=== PATIENT | female | born 1995 | race Caucasian/White ===

== ENCOUNTER → 2017-03-26 | Outpatient (CLI) | payer OTHER ==
[2017-03-26 15:12] LABS: BASO % 0.3 % (0.0-1.0); EOS # 0.1 10^3/uL (0.0-0.50); EOS % 0.8 % (0.0-3.0); HEMATOCRIT 38.9 % (36.0-47.0); HEMOGLOBIN 13.1 g/dl (12.0-16.0); IMMATURE GRANULOCYTE # 0.1 10^3/uL (0-0); IMMATURE GRANULOCYTE % 0.5 % (0-0); LYMPH # 2.1 10^3/uL (1.5-6.5); LYMPH % 19.6 % (24.0-44.0); MEAN CORPUSCULAR HEMOGLOBIN 29.5 pg (27.0-33.0); MEAN CORPUSCULAR HGB CONC 33.7 g/dl (32.0-36.5); MEAN CORPUSCULAR VOLUME 87.6 fl (80.0-96.0); MONO # 0.7 10^3/uL (0.0-0.8); MONO % 6.3 % (0.0-5.0); NEUTROPHILS # 7.8 10^3/uL (1.8-7.7); NEUTROPHILS % 72.5 % (36.0-66.0); PLATELET COUNT, AUTOMATED 277 10^3/uL (150-450); RED BLOOD COUNT 4.44 10^6/uL (4.00-5.40); RED CELL DISTRIBUTION WIDTH 12.9 % (11.5-14.5); WHITE BLOOD COUNT 10.7 10^3/uL (4.0-10.0)
[2017-03-26 17:00] LABS: CHLAMYDIA DNA AMPLIFICATION NEGATIVE (NEGATIVE); GC DNA AMPLIFICATION NEGATIVE (NEGATIVE)
[2017-03-27 10:01] LABS: RUBELLA IgG QUALITATIVE IMMUNE (IMMUNE)
[2017-03-27 10:09] LABS: HBsAg Prenatal NEGATIVE (NEGATIVE)
[2017-03-27 10:30] LABS: HEPATITIS C VIRUS ABY INDEX < 0.0 INDEX (<0.8)
[2017-03-27 10:31] LABS: HIV 1&2 SCREEN CENTAUR NEGATIVE (NEGATIVE)
== END ==
LOC: M LAB 14:33
DX: Z34.81 Encounter for supervision of other normal pregnancy, first trimester (principal); Z3A.09 9 weeks gestation of pregnancy
CPT/HCPCS: 86762

== ENCOUNTER → 2017-05-19 | Outpatient (CLI) | payer OTHER | LOC: M RAD 15:23 | DX: Z34.82 Encounter for supervision of other normal pregnancy, second trimester (principal) ==

== ENCOUNTER → 2017-07-06 | Outpatient (CLI) | payer OTHER ==
[2017-07-06 14:09] LABS: HEMATOCRIT 36.7 % (36.0-47.0); MEAN CORPUSCULAR HEMOGLOBIN 30.1 pg (27.0-33.0); MEAN CORPUSCULAR HGB CONC 32.7 g/dl (32.0-36.5); PLATELET COUNT, AUTOMATED 274 10^3/uL (150-450); RED BLOOD COUNT 3.99 10^6/uL (4.00-5.40); RED CELL DISTRIBUTION WIDTH 13.1 % (11.5-14.5); WHITE BLOOD COUNT 12.1 10^3/uL (4.0-10.0)
[2017-07-06 14:25] LABS: GLUCOSE CHALLENGE TEST 1 HOUR 68 MG/DL (LESS THAN 140)
== END ==
LOC: M SMT 10:25
DX: Z34.82 Encounter for supervision of other normal pregnancy, second trimester (principal)
CPT/HCPCS: 82950

== ENCOUNTER → 2017-09-15 | Outpatient (REF) | payer OTHER | LOC: M LAB REF 13:00 | DX: Z34.83 Encounter for supervision of other normal pregnancy, third trimester (principal); Z3A.00 Weeks of gestation of pregnancy not specified ==

== ENCOUNTER 2017-10-15 21:22 | Outpatient (CLI) | payer OTHER | END 2017-10-15 23:55 | disposition home or self-care (01) | LOC: M LDO 21:22 | DX: O47.1 False labor at or after 37 completed weeks of gestation (principal); Z3A.40 40 weeks gestation of pregnancy | CPT/HCPCS: 59025 ==

== ENCOUNTER 2017-10-16 04:59 | Inpatient (IN) | payer OTHER ==
[2017-10-16] MEDS: LR 1,000 ML IV (06:04)
[2017-10-16] MEDS ORDERED: OXYTOCIN DRIP 30 UNITS in APPROPRIATE DILUENT 1 EA IV (06:15)
[2017-10-16 06:34] LABS: HEMATOCRIT 36.3 % (36.0-47.0); HEMOGLOBIN 11.6 g/dl (12.0-15.5); MEAN CORPUSCULAR HEMOGLOBIN 26.1 pg (27.0-33.0); MEAN CORPUSCULAR VOLUME 81.8 fl (80.0-96.0); PLATELET COUNT, AUTOMATED 340 10^3/uL (150-450); RED BLOOD COUNT 4.44 10^6/uL (4.00-5.40); RED CELL DISTRIBUTION WIDTH 14.1 % (11.5-14.5)
[2017-10-16] MEDS ORDERED: FENTANYL 2MCG/ML ROPIVACAINE 0.2% IN 0.9% NACL 200ML IVBAG As Ordered (08:43)
[2017-10-16] MEDS ORDERED: EPIDURAL/PCA KEYS XX (10:30)
[2017-10-16] MEDS ORDERED: REFRIGERATOR IV KEYS XX (10:30)
[2017-10-16] MEDS ORDERED: ePHEDrine SULFATE 25 MG/5 ML(5MG/ML) SYRINGE IV (10:30)
[2017-10-16] MEDS ORDERED: LACTATED RINGER'S 1000 ML IV (10:30)
[2017-10-16] MEDS ORDERED: NALOXONE INJ 0.4 MG/1 ML VIAL (J2310) IV (10:30)
[2017-10-16] MEDS ORDERED: FENTANYL/ROPIVACAINE/NACL BAG 200 ML EPIDURAL (10:30)
[2017-10-16] MEDS ORDERED: diphenhydrAMINE INJ 50MG/ML VIAL (J1200) IV (10:30)
[2017-10-16] MEDS ORDERED: ONDANSETRON 4MG/2ML VIAL (J2405) IV ×2 (10:30→21:00)
[2017-10-16] MEDS ORDERED: EPIDURAL COMMENT XX (10:30)
[2017-10-16] MEDS ORDERED: ACETAMINOPHEN 500 MG TAB As Ordered (19:32)
[2017-10-16] MEDS: ACETAMINOPHEN 500 MG TAB PO (19:37)
[2017-10-16] MEDS: AMPICILLIN SOD/SULBACTAM SOD 1.5 GM in D5W MINI-BAG PLUS 50 ML IV (19:37)
[2017-10-16] MEDS ORDERED: RHOGAM 300 MCG (1500 IU) INJ (J2790) IM (21:00)
[2017-10-16] MEDS: OXYTOCIN DRIP 30 UNITS in APPROPRIATE DILUENT 1 EA IV (21:00)
[2017-10-16] MEDS ORDERED: METHYLERGONOVINE MALEATE 0.2 MG TAB PO (21:00)
[2017-10-16] MEDS ORDERED: DOCUSATE SODIUM 100 MG CAP PO (21:00)
[2017-10-16] MEDS ORDERED: DIBUCAINE 1% OINTMENT 30GM TOP (21:00)
[2017-10-16] MEDS ORDERED: ACETAMINOPHEN 500 MG TAB PO (21:00)
[2017-10-16] MEDS ORDERED: MEASLES,MUMPS,RUBELLA VACCINE INJ (MMR-II) (90707) SC (21:00)
[2017-10-16 21:06] LABS: CORD GAS ABE V -4.6; CORD GAS HCO3 V 19.4 MEQ/L; CORD GAS O2 SAT V 50.5 %; CORD GAS PCO2 V 33.3 mmHg; CORD GAS PH V 7.383 UNITS; CORD GAS PO2 V 20.8 mmHg; CORD GAS SBC V 19.6 MEQ/L; CORD GAS TCO2 V 20.4 MEQ/L
[2017-10-16 21:08] LABS: CORD GAS HCO3 A 20.1 MEQ/L; CORD GAS O2 SAT A 95.4 %; CORD GAS PCO2 A 37.8 mmHg; CORD GAS PH A 7.343 UNITS; CORD GAS PO2 A 61.8 mmHg; CORD GAS SBC A 20.3 MEQ/L; CORD GAS TCO2 A 21.2 MEQ/L
[2017-10-16] MEDS: LIDOCAINE 1% MDV 20ML VIAL INFIL (21:15)
[2017-10-16] MEDS ORDERED: AMPICILLIN SOD/SULBACTAM SOD 3 GM in D5W MINI-BAG PLUS 100 ML IV (23:00)
[2017-10-17] MEDS: AMPICILLIN SOD/SULBACTAM SOD 3 GM in D5W MINI-BAG PLUS 100 ML IV ×2 (01:39→08:08)
[2017-10-17] MEDS: PRENATAL VITAMINS CHEWABLE TABLET PO (08:08)
[2017-10-18] MEDS: PRENATAL VITAMINS CHEWABLE TABLET PO (07:56)
[2017-10-18] MEDS: IBUPROFEN 800 MG TAB PO (22:18)
[2017-10-19] MEDS: PRENATAL VITAMINS CHEWABLE TABLET PO (08:01)
[2017-10-19] MEDS: IBUPROFEN 800 MG TAB PO (11:23)
== END 2017-10-19 13:55 | disposition home or self-care (01) | DRG 775 ==
LOC: M LDO 04:59 → M LDI 06:01 → M OBS 22:57
PROVIDERS: Advanced Practice Midwife
PROC: 10E0XZZ Delivery of Products of Conception, External Approach (ICD-10-PCS; principal; 2017-10-16)
PROC: 0KQM0ZZ Repair Perineum Muscle, Open Approach (ICD-10-PCS; 2017-10-16)
PROC: 10907ZC Drainage of Amniotic Fluid, Therapeutic from Products of Conception, Via Natural or Artificial Opening (ICD-10-PCS; 2017-10-16)
DX: O48.0 Post-term pregnancy (principal); O41.1230 Chorioamnionitis, third trimester, not applicable or unspecified; Z3A.40 40 weeks gestation of pregnancy; O70.1 Second degree perineal laceration during delivery; Z37.0 Single live birth; O76 Abnormality in fetal heart rate and rhythm complicating labor and delivery; O77.0 Labor and delivery complicated by meconium in amniotic fluid

== ENCOUNTER → 2019-08-03 | Outpatient (CLI) | payer MEDICAID ==
[~2019-08-03] MED LIST: ACET-683 PO; IBUP200C25 PO; PRENTAB55 PO
== END ==
LOC: M LABSMTC 11:20
PROVIDERS: ATTEND Family Medicine
DX: Z11.59 Encounter for screening for other viral diseases (principal)
CPT/HCPCS: C9803; U0003

== ENCOUNTER → 2020-02-28 | Outpatient (CLI) | payer MEDICAID | LOC: M LABSMTC 13:50 | PROVIDERS: ATTEND Family Medicine | DX: Z20.828 Contact with and (suspected) exposure to other viral communicable diseases (principal) ==

== ENCOUNTER → 2020-05-30 | Outpatient (REF) | payer MEDICAID ==
[2020-05-30 15:51] LABS: CHLAMYDIA DNA AMPLIFICATION POSITIVE (NEGATIVE); GC DNA AMPLIFICATION NEGATIVE (NEGATIVE)
== END ==
LOC: M SFHCWAGY 13:26
PROVIDERS: ATTEND Advanced Practice Midwife
DX: Z36.89 Encounter for other specified antenatal screening (principal); Z3A.08 8 weeks gestation of pregnancy

== ENCOUNTER → 2020-05-30 | Outpatient (REF) | payer MEDICAID ==
[2020-05-30 14:17] LABS: HEMATOCRIT 41.7 % (36.0-47.0); HEMOGLOBIN 13.4 g/dl (12.0-15.5); MEAN CORPUSCULAR HEMOGLOBIN 29.6 pg (27.0-33.0); MEAN CORPUSCULAR HGB CONC 32.1 g/dl (32.0-36.5); MEAN CORPUSCULAR VOLUME 92.1 fl (80.0-96.0); PLATELET COUNT, AUTOMATED 283 10^3/uL (150-450); RED BLOOD COUNT 4.53 10^6/uL (4.00-5.40); WHITE BLOOD COUNT 9.3 10^3/uL (4.0-10.0)
[2020-05-30 14:40] LABS: HEMOGLOBIN A1c 4.7 %
[2020-05-30 16:20] LABS: HEPATITIS C VIRUS ABY INDEX < 0.0 INDEX (<0.8); HIV 1&2 SCREEN CENTAUR NEGATIVE (NEGATIVE)
== END ==
LOC: M PLALAB 10:48
PROVIDERS: ATTEND Advanced Practice Midwife
DX: Z36.89 Encounter for other specified antenatal screening (principal); Z3A.08 8 weeks gestation of pregnancy

== ENCOUNTER → 2020-08-17 | Outpatient (CLI) | payer MEDICAID ==
--- NOTE | 2020-08-17 13:01 | REP ---
INDICATION: ANATOMY. COMPARISON: None. TECHNIQUE: Transabdominal FINDINGS: Multiple ultrasonographic images of the gravid uterus shows a single living intrauterine gestation in the cephalic presentation. Doppler interrogation of the heart shows a heart rate of 149 beats per minute. The placenta is anterior and not low-lying. The cervix measures 3.4 cm in length and is closed. BPD: 4.5 cm 19 weeks 5 days HC: 16.3 cm 19 weeks 1 day AC: 13.9 cm 19 weeks 2 day FL: 3.0 cm 19 weeks 1 day The estimated weight is 280 g which is at the 42nd percentile for a 19 week 2 day gestational age. anatomical structures seen as unremarkable are as follows: Cerebellum, cisterna magna, cerebral ventricles, four-chamber heart, ventricular outflow tracts, upper and lower extremities, spine, and three-vessel umbilical cord. Structures suboptimally visualized are as follows: Thalami, cavum septum pellucidum, kidneys, urinary bladder, facial features, and stomach IMPRESSION: Single living intrauterine gestation as described above with an estimated gestational age of 19 weeks 2 days via composite criteria and an estimated date of delivery of 01/09/2021 by today's exam. No anomalies were detected, however, I recommend a follow-up examination to better visualize those anatomical structures not well seen today as described above. <Electronically signed by Jamison Maxwell > 08/17/20 [id number]
== END ==
LOC: M WHC 11:20
PROVIDERS: ATTEND Obstetrics & Gynecology
DX: Z34.91 Encounter for supervision of normal pregnancy, unspecified, first trimester (principal); Z3A.19 19 weeks gestation of pregnancy

== ENCOUNTER → 2020-08-22 | Outpatient (REF) | payer MEDICAID | LOC: M SFHCWAGY 13:05 | PROVIDERS: ATTEND Advanced Practice Midwife | DX: Z34.82 Encounter for supervision of other normal pregnancy, second trimester (principal) ==

== ENCOUNTER → 2020-09-17 | Outpatient (CLI) | payer MEDICAID ==
--- NOTE | 2020-09-17 10:22 | REP ---
INDICATION: F/U ANATONY. COMPARISON: Comparison study August 17, 2020.. TECHNIQUE: Transabdominal obstetric sonography. FINDINGS: Scanning through the gravid uterus demonstrates a viable single intrauterine gestation in cephalic lie. motion is observed and heart rate is recorded at 146 beats per minute. A anterior placenta is seen, grade 1, without evidence of placenta previa. Closed cervical length is measured at 4.0 cm transabdominally. No extrauterine abnormality is observed. Amniotic fluid is subjectively normal. No anomaly is seen. The following anatomic structures are identified and felt to be sonographically unremarkable: cranium, choroid plexus, cavum, cerebellum and posterior fossa, face and profile, lungs, diaphragm, left-sided stomach, abdominal wall cord insertion, three-vessel umbilical cord, kidneys and bladder, spine, and upper and lower extremities. Four-chamber heart, cyst outflow tract views, and spine were less than optimally seen today but these structures were observed previously. Biometry chart: BPD 6.1 cm, 24 weeks 5 days Head circumference 22.3 cm, 24 weeks 2 days Abdominal circumference 18.2 cm, 23 weeks 0 days Femur length 4.4 cm, 24 weeks 4 days Humeral length 3.9 cm, 23 weeks 5 days HC AC ratio normal 1.23 Cephalic index normal 0.76 Estimated weight 631 g, 1 lb 6 oz, 46 percentile for 23 weeks 3 days IMPRESSION: Viable single intrauterine gestation at 24 weeks 0 days by today's composite sonographic criteria. KALLI by today's sonography January 07, 2021. No complication identified. Expected gestational age estimate from known KALLI of 09 January 2021 is 23 weeks 5 days. Appropriate interval growth. In conjunction with previous sonography, anatomic survey is felt to be complete. <Electronically signed by Nikolai Nagy > 09/17/20 [id number]
== END ==
LOC: M WHC 08:28
PROVIDERS: ATTEND Advanced Practice Midwife
DX: Z34.82 Encounter for supervision of other normal pregnancy, second trimester (principal); Z3A.24 24 weeks gestation of pregnancy

== ENCOUNTER → 2020-10-08 | Outpatient (CLI) | payer MEDICAID ==
[~2020-10-08] MED LIST changes: +IBUP80TA PO
[2020-10-08 14:16] LABS: HEMATOCRIT 37.2 % (36.0-47.0); HEMOGLOBIN 12.1 g/dl (12.0-15.5); MEAN CORPUSCULAR HEMOGLOBIN 29.5 pg (27.0-33.0); MEAN CORPUSCULAR HGB CONC 32.5 g/dl (32.0-36.5); MEAN CORPUSCULAR VOLUME 90.7 fl (80.0-96.0); PLATELET COUNT, AUTOMATED 255 10^3/uL (150-450); WHITE BLOOD COUNT 10.1 10^3/uL (4.0-10.0)
[2020-10-08 15:42] LABS: GC DNA AMPLIFICATION NEGATIVE (NEGATIVE)
== END ==
LOC: M PLALAB 11:37
PROVIDERS: ATTEND Specialist
DX: Z34.82 Encounter for supervision of other normal pregnancy, second trimester (principal)

== ENCOUNTER → 2020-12-12 | Outpatient (REF) | payer MEDICAID ==
[~2020-12-12] MED LIST changes: -IBUP80TA PO
== END ==
LOC: M SFHCWAGY 17:32
PROVIDERS: ATTEND Advanced Practice Midwife
DX: Z36.89 Encounter for other specified antenatal screening (principal); Z3A.36 36 weeks gestation of pregnancy

== ENCOUNTER 2020-12-30 12:26 | Outpatient (CLI) | payer MEDICAID ==
[~2020-12-30] VITALS: Ht 170.2 cm; Wt 112.9 kg
[2020-12-30 12:49] VITALS: BP 134/65
[2020-12-30] MEDS ORDERED: HOME MED LIST COMPLETE! XX SCH (13:25)
--- NOTE | 2020-12-30 15:30 | REP ---
INDICATION: 38 4/7 WKS LOW BASELINE - NEED BPP AND MICHAEL AND EFW. COMPARISON: None. TECHNIQUE: Transabdominal scanning FINDINGS: Multiple ultrasonographic images of the gravid uterus shows a single living intrauterine gestation in the cephalic presentation. Doppler interrogation of the heart shows a heart rate of 127 beats per minute. The placenta is anterior and not low-lying. The cervix measures 5.5 cm in length and is closed. Doppler interrogation of the umbilical artery shows an A\B ratio of 2.67. This is within the normal range. biophysical profile score is 2 for breathing, 2 for movement, 2 for tone, and 2 for amniotic fluid volume. The calculated amniotic fluid index is 10.0 cm. The expected range is 7.2-23.2. the subjective amniotic fluid volume is within normal limits. BPD: 9.7 cm 39 weeks 6 days AC: 35.0 cm 40 weeks 5 days AC: 33.9 cm 37 weeks 6 days FL: 7 cm 36 weeks 0 days The estimated weight is 3350 g which is at the 50th percentile. IMPRESSION: Single living intrauterine gestation as described above an estimated gestational age of 38 weeks 3 days via composite criteria and an estimated date of delivery of 01/10/2021 by today's exam. <Electronically signed by Jamison Maxwell > 12/30/20 [id number]
== END 2020-12-30 15:29 | disposition home or self-care (01) ==
LOC: M LDO 12:26
PROVIDERS: ATTEND Obstetrics & Gynecology
DX: O36.8130 Decreased fetal movements, third trimester, not applicable or unspecified (principal); Z3A.38 38 weeks gestation of pregnancy

== ENCOUNTER 2021-01-13 00:37 | Inpatient (IN) | payer MEDICAID ==
[~2021-01-13] VITALS: Ht 170.2 cm; Wt 114.0 kg
[2021-01-13] VITALS (15 sets, daily range): BP systolic 97–183; BP diastolic 50–133
[2021-01-13] MEDS ORDERED: LACTATED RINGER'S 1000 ML IV STA (01:23)
[2021-01-13] MEDS ORDERED: OXYTOCIN DRIP 30 UNITS in IV 1 EA IV SCH ×2 (01:25→04:35)
[2021-01-13] MEDS ORDERED: LR 1,000 ML IV SCH ×2 (01:25)
--- OUTSIDE RECORDS SUMMARY | 2021-01-13 01:29 | CCD ---
Author Author [facility] Organization [facility] [employer] [facility] Address Unknown Phone Unavailable Care Team Providers Care Lining Strap Closer Name Role Phone CaioLianet rivas Unavailable PROBLEMS Type Condition ICD9-CM Code [id number] Code Onset Dates Condition S tatus W/U Status Risk SNOMED Code Notes Problem Supervision of other normal Z34.80 Ac tive confirm [id number] Problem Obesity complicating in third trimester O99.213 Active confirmed ALLERGIES No Known Allergies ENCOUNTERS from 1993 to 2020-10-31 Encounter Location Date Provider Diagnosis [facility] [address] [place] [address] [place] [address] Sep, Lianet Caiorob Obesity complicat ing in third trimester O99.213 and 29 weeks gestation of Z3A.29 IMMUNIZATIONS No Information SOCIAL HISTORY Tobacco Use: Social History Observation Description Date Details (start date - stop date) Never Smoker Sex Assigned At : Social History Observation Description Sex Assigned At Unknown Domestic Violence: Question Answer Notes Status: No history of abuse Alcohol Screening: Question Answer Notes Did you have a drink containing alcohol in the past year? No Points 0 Interpretation Negative Tobacco Use: Question Answer Notes Are you a: never smoker REASON FOR REFERRAL No Information VITAL SIGNS Weight 241.0 lbs Sep, Weight-kg 109.32 kg Sep, Height 67 in Sep, BMI 37.746 kg/m2 Sep, Blood pressure systolic 128 mm Hg Sep, Blood pressure diastolic 84 mm Hg Sep, MEDICATIONS Medication SIG (Take, Route, Frequency, Duration) Notes Start Da te End Date Status 28-0.8 MG 1 tablet Orally Once a day Active PROCEDURES No Information RESULTS No Results REASON FOR VISIT 4 wk pn MEDICAL (GENERAL) HISTORY Type Description Date Hospitalization History Childbirth Goals Section No Information Health Concerns No Information MEDICAL EQUIPMENT No Information MENTAL STATUS No Information FUNCTIONAL STATUS No Information ASSESSMENTS Encounter Date Diagnosis Assessment Notes Treatment Notes Treatm ent Clinical Notes Sep, Obesity complicating pregnan cy in third trimester (ICD-10 - O99.213) Sep, 29 weeks gestation of (ICD-10 - Z3A.29 ) PLAN OF TREATMENT Next Appt Details 2 Weeks Reason:- Routine follow up Provider Name:Tarun Lares, 2020-11-14 08:00:00 AM, [address] [place] [address], [address] [place] [address], [place], [address], Provider Name:Chichi iDxon, 2020-11-28 11:00:00 AM, [address] [place] [address], [place], [address], Provider Name:Lianet Chavarria, 2020-12-12 11:40:00 AM, [address] [place] [address], [address] [place] [address], [place], [address], Provider Name:Chichi Dixon, 2020-12-19 11:40:00 AM, [address] [place] [address], [address] [place] [address], [place], [address], Provider Name:Solange Esquivel, 2020-12-26 1 1:00:00 AM, [address] [place] [address], [address] [place] [address], [place], [address], Provider Name:Gilmar Rothman, 11:00:00 AM, [address] [place] [address], [address] [place] [address], [place], [address], Provider Name:Tarun Laers, 2021-01-09 10:15:00 AM, [address] [place] [address], [place], [address], Follow Up:2 Weeks- Routine follow up Insurance Providers Payer Name Payer Address Payer Phone Insured Name Patient Relati onship to Insured Coverage Start Date Coverage End Date MEDICAID [employer] [address] [facility] [address] [place] self
--- OUTSIDE RECORDS SUMMARY | 2021-01-13 01:29 | CCD ---
Author Author [facility] Organization [facility] [employer] [facility] Address Unknown Phone Unavailable Care Team Providers Care Wireless Sales Manager Name Role Phone Chichi Dixon Unavailable PROBLEMS Type Condition ICD9-CM Code [id number] Code Onset Dates Condition S tatus W/U Status Risk SNOMED Code Notes Problem Obesity complicating in third trimester O99.213 Active confirmed Problem Obesity, unspecified E66.9 Active confirmed [id number] Problem Supervision of other normal Z34.80 Ac tive confirm [id number] ALLERGIES No Known Allergies ENCOUNTERS from 1993 to 2021-01-07 Encounter Location Date Provider Diagnosis [facility] [address] [place] [address] [place] [address] Nov, Chichi Dixon Encounter for superv ision of other normal in third trimester Z34.83 and 37 weeks gestation of Z3A.37 IMMUNIZATIONS Vaccine Route Administration Date Status TDAP 0.5mL Boostrix IM Intramuscular Nov 14, 2020 Administere d Influenza 6mo & up Fluzone IM Intramuscular Dec 26, 2020 Admi nistered SOCIAL HISTORY Tobacco Use: Social History Observation [...] FOR REFERRAL No Information VITAL SIGNS Weight 247.8 lbs Nov, Weight-kg 112.4 kg 20 Oct, 2021 Height 67 in Nov, BMI 38.811 kg/m2 Nov, Blood pressure systolic 120 mm Hg Nov, Blood pressure diastolic 70 mm Hg Nov, MEDICATIONS Medication SIG (Take, Route, Frequency, Duration) Notes Start Da te End Date Status 28-0.8 MG 1 tablet Orally Once a day Active PROCEDURES No Information RESULTS No Results REASON FOR VISIT 1 WK MEDICAL (GENERAL) HISTORY Type Description Date Hospitalization History Childbirth Goals Section No Information Health Concerns No Information MEDICAL EQUIPMENT No Information MENTAL STATUS No Information FUNCTIONAL STATUS No Information ASSESSMENTS Encounter Date Diagnosis Assessment Notes Treatment Notes Treatm ent Clinical Notes Nov, Encounter for supervision of other normal in third trimester (ICD-10 - Z34.83) Nov, 37 weeks gestation of (ICD-10 - Z3A.37 ) PLAN OF TREATMENT Next Appt Details 1 Week Reason:PN Provider Name:Tarun Harris Lares, 2021-01-09 10:15:00 AM, [address] [facility], , [place], [address], Follow Up:1 WeekPN Insurance Providers Payer Name Payer Address Payer Phone Insured Name Patient Relati onship to Insured Coverage Start Date Coverage End Date MEDICAID [employer] [address] [facility] [address] [place] self
--- OUTSIDE RECORDS SUMMARY | 2021-01-13 01:29 | CCD ---
Author Author [facility] [employer] [facility] Organization [facility] [employer] [facility] Address Unknown Phone Unavailable Care Team Providers Care Clinical Engineer Name Role Phone Chichi Dixon Unavailable PROBLEMS Type Condition ICD9-CM Code [id number] Code Onset Dates Condition S tatus W/U Status Risk SNOMED Code Notes Problem Obesity complicating in third trimester O99.213 Active confirmed Problem Obesity, unspecified E66.9 Active confirmed [id number] Problem Supervision of other normal Z34.80 Ac tive confirm [id number] ALLERGIES No Known Allergies ENCOUNTERS from 1993 to 2020-12-20 Encounter Location Date Provider Diagnosis [facility] [address] [place] [address] [place] [address] Nov, Chichi Dixon IMMUNIZATIONS Vaccine Route Administration Date Status TDAP 0.5mL Boostrix IM Intramuscular Nov 14, 2020 Administere d SOCIAL HISTORY Tobacco Use: Social History Observation [...] REASON FOR REFERRAL No Information VITAL SIGNS No information MEDICATIONS Medication SIG (Take, Route, Frequency, Duration) Notes Start Da te End Date Status 28-0.8 MG 1 tablet Orally Once a day Active PROCEDURES No Information RESULTS No Results REASON FOR VISIT Fell in shower MEDICAL (GENERAL) HISTORY Type Description Date Hospitalization History Childbirth Goals Section No Information Health Concerns No Information MEDICAL EQUIPMENT No Information MENTAL STATUS No Information FUNCTIONAL STATUS No Information ASSESSMENTS No Information PLAN OF TREATMENT Next Appt Details Provider Name:Kila Kiana Castro, 2 7 10:00:00 AM, [address] [place] [address], , [place], [address], Provider Name:Gilmar Rothman, 10:00:00 AM, [address] [place] [address], , [place], [address], Provider Name:Tarun Lares, 2021-01-09 10:15:00 AM, [address] [place] [address], , [place], [address], Insurance Providers Payer Name Payer Address Payer Phone Insured Name Patient Relati onship to Insured Coverage Start Date Coverage End Date MEDICAID [employer] [address] [facility] [id number] [place] self
--- OUTSIDE RECORDS SUMMARY | 2021-01-13 01:29 | CCD ---
Author Author [facility] Organization [facility] [employer] Address Unknown Phone Unavailable Care Team Providers Care It Senior Software Engineer Java Name Role Phone Solange Esquivel Unavailable PROBLEMS Type Condition ICD9-CM Code [id number] Code Onset Dates Condition S tatus W/U Status Risk SNOMED Code Notes Problem Supervision of other normal Z34.80 Ac tive confirm [id number] Problem Obesity complicating in third trimester O99.213 Active confirmed ALLERGIES No Known Allergies ENCOUNTERS from 1993 to 2020-11-27 Encounter Location Date Provider Diagnosis [facility] [address] [place] [address] [place] [address] Oct, Solange Esquivel IMMUNIZATIONS Vaccine Route Administration Date Status TDAP 0.5mL Boostrix IM Intramuscular Nov 14, 2020 Pending SOCIAL HISTORY Tobacco Use: Social History Observation [...] Information RESULTS No Results REASON FOR VISIT Continued Complaints MEDICAL (GENERAL) HISTORY Type Description Date Hospitalization History Childbirth Goals Section No Information Health Concerns No Information MEDICAL EQUIPMENT No Information MENTAL STATUS No Information FUNCTIONAL STATUS No Information ASSESSMENTS No Information PLAN OF TREATMENT Next Appt Details Provider Name:Lianet Chavarria, 2020-12-12 10:00:00 AM, [address] [place] [address], , [place], [address], Provider Name:Chichi Dixon, 2020-12-19 10:00:00 AM, [address] [place] [address], , [place], [address], Provider Name:Lianet Chavarria, 2020-12-26 10:00:00 AM, [address] [place] [address], , [place], [address], Provider Name:Gilmar Rothman, 10:00:00 AM, [address] [place] [address], , [place], [address], Provider Name:Tarun Lares, 2021-01-09 10:15:00 AM, [address] [place] [address], , [place], [address], Insurance Providers Payer Name Payer Address Payer Phone Insured Name Patient Relati onship to Insured Coverage Start Date Coverage End Date MEDICAID [employer] [address] [facility] [address] [place] self
--- OUTSIDE RECORDS SUMMARY | 2021-01-13 01:29 | CCD ---
Author Author [facility] Syst [facility] Organization [facility] [employer] [facility] Address Unknown Phone Unavailable Care Team Providers Care Public Service Director Name Role Phone ArnaudTarun Unavailable PROBLEMS Type Condition ICD9-CM Code IHV37-GO Code Onset Dates Condition S tatus W/U Status Risk SNOMED Code Notes Problem Supervision of other normal Z34.80 Ac tive confirm [id number] Problem Obesity complicating in third trimester O99.213 Active confirmed ALLERGIES No Known Allergies ENCOUNTERS from 1993 to 2020-12-11 Encounter Location Date Provider Diagnosis [facility] [address] [place] [address] [place] [address] Oct, Tarun Lares Encounter for superv ision of other normal in third trimester Z34.83 ; 32 weeks gestation of Z3A.32 and Encounter for immunization Z23 IMMUNIZATIONS Vaccine Route Administration Date Status TDAP [...] FOR REFERRAL No Information VITAL SIGNS Weight 241.8 lbs Oct, Height 67 in Oct, BMI 37.871 kg/m2 Oct, Blood pressure systolic 122 mm Hg Oct, Blood pressure diastolic 74 mm Hg Oct, MEDICATIONS Medication SIG (Take, Route, Frequency, Duration) Notes Start Da te End Date Status 28-0.8 MG 1 tablet Orally Once a day Active PROCEDURES from 1993 to 2020-12-11 Procedure Date Ordered Result Body Site Imm: Boostrix 0.5mL IM TDAP 2020-11-14 N/A RESULTS No Results REASON FOR VISIT 2 WK PN MEDICAL (GENERAL) HISTORY Type Description Date Hospitalization History Childbirth Goals Section No Information Health Concerns No Information MEDICAL EQUIPMENT No Information MENTAL STATUS No Information FUNCTIONAL STATUS No Information ASSESSMENTS Encounter Date Diagnosis Assessment Notes Treatment Notes Treatm ent Clinical Notes Oct, 32 weeks gestation of (ICD-10 - Z3A.32 ) Oct, Encounter for supervision of other normal in third trimester (ICD-10 - Z34.83) Oct, Encounter for immunization (ICD-10 - Z23) PLAN OF TREATMENT Next Appt Details Provider Name:Lianet Chavarria, 2020-12-12 10:00:00 AM, [address] [place] [address], [place], [place], [address] [place] [address], [address] [place] [address] Provider Name:Chichi Dixon, 2020-12-19 10:00:00 AM, [address] [place] [address], [place], [place], [address] [place] [address], Provider Name:Lianet Chavarria, 2020-12-26 10:00:00 AM, [address] [place] [address], [place], [address] [place] [address], Provider Name:Gilmar Rothman, 10:00:00 AM, [address] [place] [address], [place], [address], Provider Name:Tarun Lares, 2021-01-09 10:15:00 AM, [address] [place] [address], [place], [address], Insurance Providers Payer Name Payer Address Payer Phone Insured Name Patient Relati onship to Insured Coverage Start Date Coverage End Date MEDICAID [employer] [address] [facility] [id number] [place] self
--- OUTSIDE RECORDS SUMMARY | 2021-01-13 01:29 | CCD ---
Author Author [facility] [employer] [facility] [facility] Organization [facility] [employer] [facility] [facility] Address Unknown Phone Unavailable Care Team Providers Care Lathe Scalper Operator Name Role Phone CaioLianet rivas Unavailable PROBLEMS Type Condition ICD9-CM Code [id number] Code Onset Dates Condition S tatus W/U Status Risk SNOMED Code Notes Problem Obesity complicating in third trimester O99.213 Active confirmed Problem Obesity, unspecified E66.9 Active confirmed 373426143 Problem Supervision of other normal Z34.80 Ac tive confirm [id number] ALLERGIES No Known Allergies ENCOUNTERS from 1993 to 2020-12-14 Encounter Location Date Provider Diagnosis [facility] [address] [place] [address] [place] [address] Nov, Lianet Chavarria Obesity complicat ing in third trimester O99.213 ; Malpresentation of fetus, antepartum O32.9XX0 ; Obesity, unspecified E66.9 and 36 weeks gestation of Z3A.36 IMMUNIZATIONS Vaccine Route Administration Date Status TDAP [...] FOR REFERRAL No Information VITAL SIGNS Weight 245 lbs Nov, Weight-kg 111.13 kg Nov, Height 67 in Nov, BMI 38.372 kg/m2 Nov, Blood pressure systolic 120 mm Hg Nov, Blood pressure diastolic 70 mm Hg Nov, MEDICATIONS Medication SIG (Take, Route, Frequency, Duration) Notes Start Da te End Date Status 28-0.8 MG 1 tablet Orally Once a day Active PROCEDURES No Information RESULTS Component Value Reference Range GROUP B STREP CULTURE Reviewed date:12/14/2020 11:35:20 Interpretation: Performing Lab:[facility], [facility] [address] [facility] [id number] , ,[place] [address] REASON FOR VISIT 2 WK MEDICAL (GENERAL) HISTORY Type Description Date Hospitalization History Childbirth Goals Section No Information Health Concerns No Information MEDICAL EQUIPMENT No Information MENTAL STATUS No Information FUNCTIONAL STATUS No Information ASSESSMENTS Encounter Date Diagnosis Assessment Notes Treatment Notes Treatm ent Clinical Notes Nov, Obesity complicating pregnan cy in third trimester (ICD-10 - O99.213) Nov, Malpresentation of fetus, antepartum (ICD-10 - O 32.9XX0) Nov, Obesity, unspecified (ICD-10 - E66.9) Nov, 36 weeks gestation of (ICD-10 - Z3A.36 ) PLAN OF TREATMENT Next Appt Details 1 Week Reason:- Routine follow up Provider Name:Chichi Dixon, 2020-12-19 10:00:00 AM, [address] [place] [address] , [place], [address], Provider Name:Marisol Castro, 2020-12-01 7 10:00:00 AM, [address] [place] [address], [place], [address], Provider Name:Gilmar Rothman, 10:00:00 AM, [address] [place] [address], [place], [address], Provider Name:Tarun Lares, 2021-01-09 10:15:00 AM, [address] [place] [address], [place], [address], Follow Up:1 Week- Routine follow up Insurance Providers Payer Name Payer Address Payer Phone Insured Name Patient Relati onship to Insured Coverage Start Date Coverage End Date MEDICAID [employer] [address] [facility] [address] [place] self
--- OUTSIDE RECORDS SUMMARY | 2021-01-13 01:29 | CCD ---
Author Author [facility] Organization [employer] [facility] Address Unknown Phone Unavailable Care Team Providers Care Management Sme Name Role Phone Berta Waggoner Unavailable PROBLEMS Type Condition ICD9-CM Code XXQ35-IF Code Onset Dates Condition S tatus W/U Status Risk SNOMED Code Notes Problem Supervision of other normal Z34.80 Ac tive confirm [id number] Problem Obesity complicating in third trimester O99.213 Active confirmed ALLERGIES No Known Allergies ENCOUNTERS from 1993 to 2020-11-28 Encounter Location Date Provider Diagnosis [facility] [address] [place] [address] [place] [address] Oct, Berta Waggoner IMMUNIZATIONS Vaccine Route Administration Date Status TDAP [...] Information RESULTS No Results REASON FOR VISIT OTC options in MEDICAL (GENERAL) HISTORY Type Description Date Hospitalization History Childbirth Goals Section No Information Health Concerns No Information MEDICAL EQUIPMENT No Information MENTAL STATUS No Information FUNCTIONAL STATUS No Information ASSESSMENTS No Information PLAN OF TREATMENT Next Appt Details Provider Name:Lianet Chavarria, 2020-12-12 10:00:00 AM, [address] [place] [address], , [place], [address], Provider Name:Chichi Dixon, 2020-12-19 10:00:00 AM, [address] [place] [address], , [place], [address], Provider Name:Lianet Chavarria, 2020-12-26 10:00:00 AM, [address] [place] [address], , [place], [address], Provider Name:Gilmar Rothman, 10:00:00 AM, [address] [place] [address], , [place], [address], Provider Name:Tarun Lares, 2021-01-09 10:15:00 AM, [address] [place] [address], , [place], [address], Insurance Providers Payer Name Payer Address Payer Phone Insured Name Patient Relati onship to Insured Coverage Start Date Coverage End Date MEDICAID [employer] [address] [facility] [address] [place] self
--- OUTSIDE RECORDS SUMMARY | 2021-01-13 01:30 | CCD ---
Author Author [facility] Organization [facility] Address Unknown Phone Unavailable Support Name Relationship Address Phone RAMESH SUNSHINEI Next Of Kin [phone] [address] SELF Next Of Kin Unknown Unavailable DEMARCUS AGUERO PHOTO Next Of Kin [address] [place] [address] [phone] [place] [address] SKIP PINO Next Of Kin [address] [place] [address] SE Next Of Kin Unknown Unavailable LIZ SUNSHINE Next Of Kin - , [place] - [place], [place] [address] RAMESH SUNSHINEI ECON [address] [id number] Un[place] [address] [phone] SKIP PINO ECON [address] [place] [address] Unavailable Re-disclosure Warning The records that you are about to access may contain information from federally-assisted alcohol or drug abuse programs. If such information is present, then the following federally mandated warning applies: This information has been disclosed to you from records protected by federal confidentiality rules (42 CFR part 2). The federal rules prohibit you from making any further disclosure of this information unless further disclosure is expressly permitted by the written consent of the person to whom it pertains or as otherwise permitted by 42 CFR part 2. A general authorization for the release of medical or other information is NOT sufficient for this purpose. The Federal rules restrict any use of the information to criminally investigate or prosecute any alcohol or drug abuse patient.The records that you are about to access may contain highly sensitive health information, the redisclosure of which is protected by Article 27-F of the [facility] Public Health law. If you continue you may have access to information: Regarding HIV / AIDS; Provided by facilities licensed or operated by the [facility] Office of Mental Health; or Provided by the [facility] Office for People With Developmental Disabilities. If such information is present, then the following [facility] mandated warning applies: This information has been disclosed to you from confidential records which are protected by state law. State law prohibits you from making any further disclosure of this information without the specific written consent of the person to whom it pertains, or as otherwise permitted by law. Any unauthorized further disclosure in violation of state law may result in a fine or shelter sentence or both. A general authorization for the release of medical or other information is NOT sufficient authorization for further disc losure. Family History Family Member Name Family Member Gender Family Member Status Date o f Status Description Data Source(s) Unknown Unknown Problem [facility] ([facility]) Encounters Encounter Providers Location Date Indications Data Source(s ) Unknown [address] [place] [id number] 12/20/2020 12:00:00 AM EDT eCW1 ([facility]) ( ESTOB) [facility] Est OB [address] [place] [address] 12/12/2020 12:00:00 AM EDT eCW1 ([facility]) Unknown [address] [place] [address] 11/28/2020 12:00:00 AM EDT eCW1 ([facility]) Unknown [address] [place] [address] 11/27/2020 12:00:00 AM EDT eCW1 ([facility]) Unknown [address] [place] [address] 11/23/2020 12:00:00 AM EDT eCW1 ([facility]) ( ESTOB) enter Est OB [address] [place] [address] 11/14/2020 12:00:00 AM EDT eCW1 ([facility]) ( [facility]) [facility] [address] [place] [address] 10/30/2020 12:00:00 AM EDT eCW1 ([facility]) (WC ESTOB) [facility] [address] [place] [address] 09/20/2020 12:00:00 AM EDT eCW1 ([facility]) (WC ESTOB) [facility] [address] [place] [address] 08/22/2020 12:00:00 AM EDT eCW1 ([facility]) (WC ESTOB) [facility] [address] [place] [address] 07/25/2020 12:00:00 AM EDT eCW1 ([facility]) (WC ESTOB) [facility] [address] [place] [address] 06/27/2020 12:00:00 AM EDT eCW1 ([facility]) Unknown [address] [facility] [address] 05/30/2020 12:00:00 AM EDT eCW1 ([facility]) Immunizations Vaccine Date Status Description Data Source(s) Tdap 11/14/2020 08:16:00 AM EDT completed e CW1 ([facility]) Tdap 11/14/2020 08:16:00 AM EDT completed e CW1 ([facility]) Tdap 11/14/2020 08:16:00 AM EDT completed e CW1 ([facility]) COVID-19 VACC,MRNA(MODERNA)/PF 08/08/2020 12:00:00 AM EDT completed [facility] COVID-19 VACCINE Moderna 08/08/2020 12:00:00 AM EDT completed [facility] Vaccine Series Complete: YESThis Data wa s Submitted to [facility] Via [facility]. COVID-19 VACC,MRNA(MODERNA)/PF 07/13/2020 12:00:00 AM EDT completed [facility] COVID-19 VACCINE Moderna 07/13/2020 12:00:00 AM EDT completed [facility] Vaccine Series Complete: NOThis Data was Submitted to [facility] Via [employer]. Medications Medication Brand Name Start Date Product Form Dose Route Admi nistrative Instructions Pharmacy Instructions Status Indications Reaction Description Data Source(s) Azithromycin 500 MG Oral Tablet Azithromycin 500 MG 05/31/2020 1 2:00:00 AM EDT 2.0 {tablets} suspended Azithrom ycin 500 MG eCW1 ([facility]) Azithromycin 500 MG Oral Tablet Azithromycin 500 MG 05/31/2020 1 2:00:00 AM EDT 2.0 {tablets} suspended eCW1 ([facility]) Azithromycin 500 MG Oral Tablet Azithromycin 500 MG 05/31/2020 1 2:00:00 AM EDT 2.0 {tablets} suspended Azithrom ycin 500 MG eCW1 ([facility]) Azithromycin 500 MG Oral Tablet Azithromycin 500 MG 05/31/2020 1 2:00:00 AM EDT 2.0 {tablets} suspended Azithrom ycin 500 MG eCW1 ([facility]) Insurance Providers Payer name Policy type / Coverage type Policy ID Covered constitution party ID Covered constitution party's relationship to fitzpatirck Policy Fitzpatrick Plan Information [employer] [id number] MO2 [id number] [employer] [id number] MO2 [id number] [employer] [id number] SP [id number] [place] [id number] SP [id number] [facility] [id number] MO2 [id number] HEALTH SYSTEM MEDICAID [id number] SP [id number] N [employer] [id number] MO2 [id number] [employer] PPO O [id number] O [id number] [facility] Maintenance Organization (HMO) [id number] Family Dependent [id number] SELF PAY ONLY [id number] SP [id number] Problems, Conditions, and Diagnoses Code Display Name Description Problem Type Effective Dates Data Source(s) E66.9 Obesity Obesity, unspecified Problem 12/14/2020 12:0 0:00 AM EDT eCW1 ([facility]) O99.213 Obesity complicating , third tr imester Obesity complicating in third trimester Problem 10/30/2020 12:00:00 AM EDT eCW1 ([facility]) Z34.80 care Supervision of other normal Steven glass 05/29/2020 12:00:00 AM EDT eCW1 ([facility]) Surgeries/Procedures Procedure Description Date Indications Data Source(s) TDAP VACCINE 7/> YR IM 11/14/2020 12:00:00 AM EDT eCW1 ([facility]) Results ID Date Data Source GROUP B STREP CULTURE 12/12/2020 12:00:00 AM EDT eCW1 ([facility]) Name Value Range Interpretation Code Description Data Karine rce(s) Supporting Document(s) GROUP B STREP CULTURE eCW1 ([facility]) ID Date Data Source [id number] 02/28/2020 01:45:00 PM EST [facility] Name Value Range Interpretation Code Description Data Karine rce(s) Supporting Document(s) SARS coronavirus 2 RNA [facility] This lab was ordered by [facility] and reported by [facility]. Procedure Social History Code Duration Value Status Description Data Source(s ) Smoking 12/19/2020 12:00:00 AM EDT Never Smoker completed Never S moker eCW1 ([facility]) Smoking 12/14/2020 12:00:00 AM EDT Never Smoker completed Never S moker eCW1 ([facility]) Smoking 12/10/2020 12:00:00 AM EDT Never Smoker completed Never S moker eCW1 ([facility]) Smoking 11/21/2020 12:00:00 AM EDT Never Smoker completed Never S moker eCW1 ([facility]) Smoking 11/21/2020 12:00:00 AM EDT Never Smoker completed Never S moker eCW1 ([facility]) Smoking 11/21/2020 12:00:00 AM EDT Never Smoker completed Never S moker eCW1 ([facility]) Smoking 10/22/2020 12:00:00 AM EDT Never Smoker completed Never S moker eCW1 ([facility]) Smoking 09/20/2020 12:00:00 AM EDT Never Smoker completed Never S moker eCW1 ([facility]) Smoking 08/20/2020 12:00:00 AM EDT Never Smoker completed Never S moker eCW1 ([facility]) Smoking 08/20/2020 12:00:00 AM EDT Never Smoker completed Never S moker eCW1 ([facility]) Smoking 07/25/2020 12:00:00 AM EDT Never Smoker completed Never S moker eCW1 ([facility]) Smoking 07/17/2020 12:00:00 AM EDT Never Smoker completed Never S moker eCW1 ([facility]) Vital Signs ID Date Data Source UNK Name Value Range Interpretation Code Description Data Source(s) Body weight 245 [lb_av] 245 [lb_av] eCW1 ([facility]) Body weight 111.13 kg 111.13 kg W1 ([facility]) Body height 67 [in_i] 67 [in_i] eCW1 ([facility]) Body mass index (BMI) [Ratio] 38.372 kg/m2 38.3 72 kg/m2 W1 ([facility]) Systolic blood pressure 120 mm[Hg] 120 mm[Hg] e CW1 ([facility]) Diastolic blood pressure 70 mm[Hg] 70 mm[Hg] eCW1 ([facility]) Body weight 241.8 [lb_av] 241.8 [lb_av] eCW1 ([facility]) Body height 67 [in_i] 67 [in_i] eCW1 ([facility]) Body mass index (BMI) [Ratio] 37.871 kg/m2 37.8 71 kg/m2 eCW1 ([facility]) Systolic blood pressure 122 mm[Hg] 122 mm[Hg] e CW1 ([facility]) Diastolic blood pressure 74 mm[Hg] 74 mm[Hg] eCW1 ([facility]) Body weight 241.0 [lb_av] 241.0 [lb_av] eCW1 ([facility]) Body weight 109.32 kg 109.32 kg eCW1 ([facility]) Body height 67 [in_i] 67 [in_i] eCW1 ([facility]) Body mass index (BMI) [Ratio] 37.746 kg/m2 37.7 46 kg/m2 eCW1 ([facility]) Systolic blood pressure 128 mm[Hg] 128 mm[Hg] e CW1 ([facility]) Diastolic blood pressure 84 mm[Hg] 84 mm[Hg] eCW1 ([facility]) Body weight 240.6 [lb_av] 240.6 [lb_av] eCW1 ([facility]) Body height 67 [in_i] 67 [in_i] eCW1 ([facility]) Body mass index (BMI) [Ratio] 37.683 kg/m2 37.6 83 kg/m2 eCW1 ([facility]) Systolic blood pressure 118 mm[Hg] 118 mm[Hg] e CW1 ([facility]) Diastolic blood pressure 70 mm[Hg] 70 mm[Hg] eCW1 ([facility]) Body weight 235.0 [lb_av] 235.0 [lb_av] eCW1 ([facility]) Body height 67 [in_i] 67 [in_i] eCW1 ([facility]) Body mass index (BMI) [Ratio] 36.806 kg/m2 36.8 06 kg/m2 eCW1 ([facility]) Systolic blood pressure 120 mm[Hg] 120 mm[Hg] e CW1 ([facility]) Diastolic blood pressure 68 mm[Hg] 68 mm[Hg] eCW1 ([facility]) Body mass index (BMI) [Ratio] 35.866 kg/m2 35.8 66 kg/m2 eCW1 ([facility]) Systolic blood pressure 122 mm[Hg] 122 mm[Hg] e CW1 ([facility]) Diastolic blood pressure 70 mm[Hg] 70 mm[Hg] eCW1 ([facility]) Body weight 229 [lb_av] 229 [lb_av] eCW1 ([facility]) Body height 67 [in_i] 67 [in_i] eCW1 ([facility]) Body weight 224.0 [lb_av] 224.0 [lb_av] eCW1 ([facility]) Body height 67 [in_i] 67 [in_i] eCW1 ([facility]) Body mass index (BMI) [Ratio] 35.083 kg/m2 35.0 83 kg/m2 eCW1 ([facility]) Systolic blood pressure 126 mm[Hg] 126 mm[Hg] e CW1 ([facility]) Diastolic blood pressure 74 mm[Hg] 74 mm[Hg] eCW1 ([facility]) Patient Treatment Plan of Care Planned Activity Planned Date Details Description Data Source (s) Tdap 11/14/2020 08:16:00 AM EDT e CW1 ([facility]) Tdap 11/14/2020 08:16:00 AM EDT e CW1 ([facility]) Tdap 11/14/2020 08:16:00 AM EDT e CW1 ([facility])
[2021-01-13 02:21] LABS: HEMATOCRIT 41.6 % (36.0-47.0); HEMOGLOBIN 13.7 g/dl (12.0-15.5); MEAN CORPUSCULAR HEMOGLOBIN 28.5 pg (27.0-33.0); MEAN CORPUSCULAR HGB CONC 32.9 g/dl (32.0-36.5); MEAN CORPUSCULAR VOLUME 86.7 fl (80.0-96.0); PLATELET COUNT, AUTOMATED 285 10^3/uL (150-450); WHITE BLOOD COUNT 15.5 10^3/uL (4.0-10.0)
[2021-01-13] MEDS ORDERED: FENTANYL 2MCG/ML ROPIVACAINE 0.2% IN 0.9% NACL 100ML IVBAG As Ordered ONE (02:22)
[2021-01-13] MEDS ORDERED: NALOXONE INJ 0.4MG/1ML VIAL (J2310 PER 1MG) IV PRN (03:30)
[2021-01-13] MEDS ORDERED: ePHEDrine SULFATE 25 MG/5 ML(5MG/ML) SYRINGE IV PRN (03:30)
[2021-01-13] MEDS ORDERED: EPIDURAL/PCA KEYS XX PRN (03:30)
[2021-01-13] MEDS ORDERED: EPIDURAL COMMENT XX SCH (03:30)
[2021-01-13] MEDS ORDERED: REFRIGERATOR IV KEYS XX PRN (03:30)
[2021-01-13] MEDS ORDERED: LACTATED RINGER'S 1000 ML IV PRN (03:30)
[2021-01-13] MEDS ORDERED: FENTANYL/ROPIVACAINE/NACL BAG 100 ML EPIDURAL SCH (03:30)
[2021-01-13] MEDS ORDERED: diphenhydrAMINE 50MG/ML VIAL (J1200) IV PRN (03:30)
[2021-01-13] MEDS ORDERED: ONDANSETRON 4MG/2ML VIAL IV PRN (03:30)
[2021-01-13] MEDS ORDERED: METHYLERGONOVINE MALEATE 0.2 MG TAB PO PRN (04:35)
[2021-01-13] MEDS ORDERED: IBUPROFEN 800 MG TAB PO PRN (04:35)
[2021-01-13] MEDS ORDERED: ACETAMINOPHEN TAB 650MG DOSE (2X325MG) PO PRN (04:35)
[2021-01-13] MEDS ORDERED: MEASLES,MUMPS,RUBELLA VACCINE INJ (MMR-II) (90707) SC SCH (04:35)
[2021-01-13] MEDS ORDERED: IBUPROFEN 600MG TAB PO PRN (04:35)
[2021-01-13] MEDS ORDERED: ACETAMINOPHEN 500 MG TAB PO PRN (04:35)
[2021-01-13] MEDS ORDERED: RHOGAM 300 MCG (1500 IU) INJ (J2790) IM SCH (04:35)
[2021-01-13 04:46] LABS: CORD GAS ABE A -2.2; CORD GAS ABE V -1.4; CORD GAS HCO3 V 22.1 MEQ/L; CORD GAS O2 SAT A 29.3 %; CORD GAS PCO2 A 51.7 mmHg; CORD GAS PCO2 V 34.6 mmHg; CORD GAS PH A 7.303 UNITS; CORD GAS PH V 7.423 UNITS; CORD GAS PO2 A 14.8 mmHg; CORD GAS SBC A 20.8 MEQ/L; CORD GAS SBC V 22.5 MEQ/L; CORD GAS TCO2 A 26.6 MEQ/L; CORD GAS TCO2 V 23.2 MEQ/L
[2021-01-13] MEDS: DOCUSATE SODIUM 100MG CAPSULE PO SCH ×2 (07:31→21:00)
[2021-01-13] MEDS: PRENATAL VITAMINS CHEWABLE TABLET PO SCH (07:31)
--- NOTE | 2021-01-13 09:29 | HPE ---
HISTORY AND PHYSICAL DATE OF ADMISSION: 01/13/2021 HISTORY OF PRESENT ILLNESS: Misty is a 25-year-old female, 2, para 1-0-0-1, with an EDC of 01/09/2021, EGA of 40 and 4/7 weeks gestation who came into the labor and delivery with complaints of contractions every 3-4 minutes. Upon evaluation, she was found to be in active labor. At this point, the decision was made for admission. Her record reviewed which was essentially unremarkable. lab: Blood type is O+, rubella immune. Hepatitis negative, HIV negative. GC, Chlamydia negative. One hour sugar testing was within normal limits. Her GBS is negative. PAST MEDICAL HISTORY: Denies. PAST GYNECOLOGICAL HISTORY: Consistent with a Chlamydial infection. The patient had test of cure which was negative. PAST SURGICAL HISTORY: Denies. SOCIAL HISTORY: Denies any alcohol, drug or cigarette smoking. REVIEW OF SYSTEMS: Unremarkable. MEDICATIONS: vitamins. ALLERGIES: No known drug allergies. PHYSICAL EXAMINATION: Normal appearing female in no acute distress. Abdomen: Soft, nontender, nondistended. Extremities: No clubbing, cyanosis or edema. Vaginal exam: 3-4 cm dilated, 80% effaced. Fetus at minus 2 station in a vertex position, intact membrane. Tracing reviewed, category 1 tracing, contractions every 3 to 6 minutes. ASSESSMENT: 1. Intrauterine at 40 and 4/7 weeks gestation in active labor. 2. GBS negative. PLAN: Admit to labor and delivery, routine labs sent. Pain management discussed. Patient now for an epidural. We will continue to monitor. Anticipate delivery. [facility]
--- NOTE | 2021-01-13 09:47 | DN ---
DELIVERY NOTE DATE OF DELIVERY: 01/13/2021 TIME OF : GENDER: Male APGARS: 8-9 LACERATIONS: ANESTHESIA: ESTIMATED BLOOD LOSS: 250 mL COUNTS: DESCRIPTION OF DELIVERY: Misty is a 25-year-old female, 2, para 1-0-0-1 who was admitted at 40 and 4/7 weeks gestation in active labor. She had spontaneous rupture of membranes with light meconium. She then became fully after an epidural, pushed and delivered a live male in right occiput anterior position with a nuchal cord x1, Apgars 8-9, weight 7 lb, 9 oz. Placenta delivered spontaneously intact, three-vessel cord. The perineum, vagina and cervix inspected. No laceration noted. Estimated blood loss: 250 mL. Both mother and baby are in stable condition. [facility]
[2021-01-14 06:00] VITALS: BP 139/82
[2021-01-14] MEDS: PRENATAL VITAMINS CHEWABLE TABLET PO SCH (08:23)
[2021-01-14] MEDS: DOCUSATE SODIUM 100MG CAPSULE PO SCH (08:23)
[2021-01-14] MEDS ORDERED: ACET-683 PO (11:18)
[2021-01-14] MEDS ORDERED: IBUP80TA PO (11:18)
== END 2021-01-14 17:43 | disposition home or self-care (01) | DRG 560 ==
LOC: M LDO 00:37 → M LDI 01:25 → M OBS 06:00
PROVIDERS: ADMIT Obstetrics & Gynecology; ATTEND Obstetrics & Gynecology
PROC: 10E0XZZ Delivery of Products of Conception, External Approach (ICD-10-PCS; principal; 2021-01-13)
DX: O48.0 Post-term pregnancy (principal); Z3A.40 40 weeks gestation of pregnancy; Z37.0 Single live birth; O77.0 Labor and delivery complicated by meconium in amniotic fluid; O69.81X0 Labor and delivery complicated by cord around neck, without compression, not applicable or unspecified

== ENCOUNTER → 2023-01-26 | Outpatient (REF) | payer MEDICAID ==
[~2023-01-26] MED LIST changes: +IBUP80TA PO
[2023-01-26 16:59] LABS: CHLAMYDIA DNA AMPLIFICATION NEGATIVE (NEGATIVE); GC DNA AMPLIFICATION NEGATIVE (NEGATIVE)
== END ==
LOC: M SFHCWAGY 12:31
PROVIDERS: ATTEND Nurse Practitioner Family
DX: N73.9 Female pelvic inflammatory disease, unspecified (principal); Z11.3 Encounter for screening for infections with a predominantly sexual mode of transmission; Z12.4 Encounter for screening for malignant neoplasm of cervix

== ENCOUNTER → 2023-02-25 | Outpatient (REF) | payer MEDICAID, OTHER | LOC: M SFHCWAGY 13:03 | PROVIDERS: ATTEND Nurse Practitioner Family | DX: Z12.4 Encounter for screening for malignant neoplasm of cervix (principal); R87.615 Unsatisfactory cytologic smear of cervix ==

== ENCOUNTER → 2023-09-28 | Outpatient (REF) | payer OTHER | LOC: M LAB REF 16:17 → EEVIPCON 16:17 | PROVIDERS: ATTEND Nurse Practitioner Family | DX: R30.0 Dysuria (principal) ==

== ENCOUNTER → 2024-03-29 | Outpatient (CLI) | payer OTHER | LOC: M PLAIMG 09:48 | PROVIDERS: ATTEND Otolaryngology | DX: J32.0 Chronic maxillary sinusitis (principal) ==

== ENCOUNTER 2024-05-27 10:29 | Day surgery (SDC) | payer OTHER ==
[~2024-05-27] VITALS: Ht 170.2 cm; Wt 71.3 kg
[2024-05-27] MEDS ORDERED: LR 1,000 ML IV SCH ×2 (10:50→15:30)
[2024-05-27] MEDS ORDERED: PRED20TA PO (11:00)
[2024-05-27] MEDS ORDERED: MIDAZOLAM INJ 2MG/2ML VIAL As Ordered ONE (11:40)
[2024-05-27] MEDS ORDERED: ONDANSETRON 4MG 2ML VIAL As Ordered ONE (11:40)
[2024-05-27] MEDS ORDERED: fentaNYL 100 MCG/2 ML INJECTION As Ordered ONE (11:40)
[2024-05-27] MEDS ORDERED: propofoL 200 MG/20 ML VIAL As Ordered ONE (11:40)
[2024-05-27] MEDS ORDERED: ROCURONIUM BROMIDE 50MG/5ML VIAL As Ordered ONE (11:40)
[2024-05-27] MEDS ORDERED: LIDOCAINE 2% 100MG/5ML SDV (FOR ANES.) As Ordered ONE (11:40)
[2024-05-27] MEDS ORDERED: ACETAMINOPHEN 1000MG/100ML IV BAG As Ordered ONE (11:41)
[2024-05-27] MEDS ORDERED: SUGAMMADEX SODIUM 500 MG/5 ML VIAL (BRIDION) As Ordered ONE (11:41)
[2024-05-27] MEDS: LIDOCAINE W/EPINEPHRINE 1% 20ML VIAL As Ordered ONE (13:05)
[2024-05-27] MEDS: OXYMETAZOLINE 0.05% NASAL SPRAY As Ordered ONE (13:05)
[2024-05-27] MEDS: METHYLENE BLUE 0.5% (5MG/ML) 10 ML AMP (PROVAYBLUE) As Ordered ONE (13:05)
[2024-05-27] MEDS ORDERED: dexmedeTOMIDine (4MCG/ML)200MCG/50ML BTL (PRECEDEX) As Ordered ONE (15:02)
[2024-05-27] MEDS ORDERED: oxyCODONE 5MG TAB PO PRN (15:30)
[2024-05-27] MEDS ORDERED: fentaNYL 100 MCG/2 ML INJECTION IV PRN (15:30)
[2024-05-27] MEDS: ONDANSETRON 4MG 2ML VIAL IV PRN (15:49)
[2024-05-27] MEDS ORDERED: PROMETHAZINE 25MG/ML 1ML VIAL IV PRN (15:55)
[2024-05-27] MEDS: HYDROMORPHONE HCL 0.5 MG/ 0.5 ML SYRINGE IV PRN (15:58)
[2024-05-27] MEDS ORDERED: ONDANSETRON 4MG 2ML VIAL IV ONE (17:15)
[2024-05-27 18:30] VITALS: BP 115/66; TEMP 97.2; O2SAT 97
== END 2024-05-27 18:34 | disposition home or self-care (01) ==
LOC: M SDC 10:29
PROVIDERS: ATTEND Otolaryngology
DX: J33.0 Polyp of nasal cavity (principal); J32.9 Chronic sinusitis, unspecified; J34.2 Deviated nasal septum; J34.89 Other specified disorders of nose and nasal sinuses
CPT/HCPCS: 30520; 31255; 31267; 31298; 61782; 81025; 88304; J0131; J1100; J1171; J2250; J2405; J3010; Q9968